=== PATIENT | male | born 1945 | race Two or more races ===

== ENCOUNTER 2020-08-20 21:01 | Emergency (ER) | payer MEDICARE, OTHER ==
[~2020-08-20] VITALS: Ht 172.7 cm; Wt 78.9 kg
--- NOTE | 2020-08-20 21:07 | NUR ---
PT AAOX4. BIBSON C/O COUGH X1 DAY. PER SON, TESTED POSITIVE YESTERDAY AND PT REQUESTING TO BE TESTED FOR COVID. PT PLACED ON MONITOR AND PULSE OX. RR EVEN AND UNLABORED. SAT 99% ON ROOM AIR.
--- NOTE | 2020-08-20 21:49 | NUR ---
DIGITAL EDITOR AT BEDSIDE FOR BLOOD WORK
[2020-08-20 21:56] LABS: BASOPHILS # (AUTO) 0.1 /CMM (0.0-0.2); BASOPHILS % (AUTO) 1.2 % (0.0-2.0); EOSINOPHILS % (AUTO) 3.4 % (0.0-6.0); HEMATOCRIT 32 % (39-51); HEMOGLOBIN 10.6 g/dL (13.5-17.5); LYMPHOCYTES # (AUTO) 1.1 /CMM (0.8-4.8); LYMPHOCYTES % (AUTO) 21.9 % (20.0-44.0); MEAN CORPUSCULAR HGB CONC 33 g/dl (31.0-36.0); MEAN CORPUSCULAR VOLUME 87 fL (80-96); MONOCYTES # (AUTO) 0.9 /CMM (0.1-1.30); MONOCYTES % (AUTO) 17.7 % (2.0-12.0); NEUTROPHILS # (AUTO) 2.9 /CMM (1.8-8.9); NEUTROPHILS % (AUTO) 55.8 % (43.0-81.0); PLATELET COUNT (AUTO) 208 /CMM (150-450); RED BLOOD CELL COUNT(AUTO) 3.66 MIL/uL (4.5-6.0); WHITE BLOOD COUNT (AUTO) 5.2 K/uL (4.3-11.0)
[2020-08-20 22:04] LABS: CALCIUM, SERUM 8.1 mg/dL (8.5-10.1); CARBON DIOXIDE 25 mmol/L (21-32); CHLORIDE 102 mmol/L (98-107); GLUCOSE 105 mg/dL (74-106); POTASSIUM 3.3 mmol/L (3.5-5.1); SODIUM SERUM 137 mmol/L (136-145); UREA NITROGEN, BLOOD 29 mg/dL (7-18)
[2020-08-20 22:17] LABS: ALANINE AMINOTRANSFERASE 18 U/L (12-78); ALBUMIN 3.5 g/dL (3.4-5.0); ALKALINE PHOSPHATASE 52 U/L (46-116); ASPARTATE AMINOTRANSFERASE 16 U/L (15-37); B-TYPE NATRIURETIC PEPTIDE 289 PG/ML (0-125); BILIRUBIN,TOTAL 0.3 mg/dL (0.2-1.0); TOTAL PROTEIN, SERUM 7.5 g/dL (6.4-8.2)
--- NOTE | 2020-08-20 22:31 | NUR ---
PT REMAINS RESTING IN BED, VSS.
--- NOTE | 2020-08-20 23:15 | NUR ---
LAB CALLED REGARDING POSITIVE COVID RESULT.
[2020-08-20 23:16] LABS: BAND % (MANUAL) 4 % (0.0-5.0); CREATINE KINASE, TOTAL 69 U/L (39-308); EOSINOPHILS % (MANUAL) 4 % (0-4); FERRITIN 24 ng/mL (8-388); LYMPHOCYTES % (MANUAL) 21 % (16-48); MONOCYTES % (MANUAL) 15 % (0-11.0); NEUTROPHILS % (MANUAL) 56 (42-76)
--- NOTE | 2020-08-20 23:18 | NUR ---
PT RESTING IN BED. VSS.
[2020-08-20 23:20] LABS: C-REACTIVE PROTEIN 2.2 mg/dL (0.0-0.9)
--- NOTE | 2020-08-20 23:36 | NUR ---
Patient discharged to home in stable condition. Written and verbal after care instructions given. Patient verbalizes understanding of instruction. vss. Pt ambulated with steady gait.
--- NOTE | 2020-08-20 23:36 | NUR ---
MD SPEAKING TO PT AND SON REGARDING PLAN OF CARE. PT WILL BE DISCHARGED.
[2020-08-21] VITALS: BP 142/79
[2020-08-26] MEDS ORDERED: DONE10TA44 PO (12:08)
[2020-08-26] MEDS ORDERED: TOLT4CAP14 PO (12:08)
== END 2020-08-21 00:01 | disposition home or self-care (01) ==
LOC: ER 21:06
DX: U07.1 COVID-19 (principal); I10 Essential (primary) hypertension; Z86.73 Personal history of transient ischemic attack (TIA), and cerebral infarction without residual deficits; I70.0 Atherosclerosis of aorta
CPT/HCPCS: 36415; 71045-TC; 80053-TC; 82550-TC; 82728-TC; 83605-TC; 83615-TC; 83880; 85025-TC; 85378-TC; 86140-TC; 87040-TC; C9803

== ENCOUNTER 2020-08-30 13:17 | Inpatient (IN) | payer MEDICARE, OTHER ==
[~2020-08-30] VITALS: Ht 172.7 cm; Wt 71.2 kg
[~2020-08-30 13:17] MED LIST: DONE10TA44 PO; TOLT4CAP14 PO
--- NOTE | 2020-08-30 13:20 | NUR ---
ON & OFF FEVER AND LOW O2SAT AT HOME, TESTED (+) COVID. PATIENT A/OX4, BREATHING EVEN AND UNLABORED, NO SOB NOTED, SPO2 93% ON ROOM AIR. NO DISTRESS NOTED. FAMILY AT BEDSIDE FOR TRANSLATION.
--- NOTE | 2020-08-30 14:25 | NUR ---
TO ER BED 8,NO APPARENT CHANGE IN CONDITION,NAD
[2020-08-30 15:06] LABS: BASOPHILS % (AUTO) 0.3 % (0.0-2.0); EOSINOPHILS % (AUTO) 0.1 % (0.0-6.0); HEMATOCRIT 30 % (39-51); HEMOGLOBIN 10.2 g/dL (13.5-17.5); LYMPHOCYTES # (AUTO) 0.8 /CMM (0.8-4.8); LYMPHOCYTES % (AUTO) 14.3 % (20.0-44.0); MEAN CORPUSCULAR HGB CONC 34 g/dl (31.0-36.0); MEAN CORPUSCULAR VOLUME 86 fL (80-96); MONOCYTES # (AUTO) 0.4 /CMM (0.1-1.30); MONOCYTES % (AUTO) 7.9 % (2.0-12.0); NEUTROPHILS # (AUTO) 4.4 /CMM (1.8-8.9); NEUTROPHILS % (AUTO) 77.4 % (43.0-81.0); PLATELET COUNT (AUTO) 225 /CMM (150-450); RED BLOOD CELL COUNT(AUTO) 3.53 MIL/uL (4.5-6.0); WHITE BLOOD COUNT (AUTO) 5.7 K/uL (4.3-11.0)
[2020-08-30 15:31] LABS: CALCIUM, SERUM 8.3 mg/dL (8.5-10.1); CARBON DIOXIDE 22 mmol/L (21-32); CHLORIDE 96 mmol/L (98-107); GLUCOSE 104 mg/dL (74-106); POTASSIUM 3.4 mmol/L (3.5-5.1); SODIUM SERUM 132 mmol/L (136-145); UREA NITROGEN, BLOOD 42 mg/dL (7-18)
[2020-08-30 15:41] LABS: CREATINE KINASE, TOTAL 85 U/L (39-308); FERRITIN 312 ng/mL (8-388)
[2020-08-30 15:55] LABS: ALANINE AMINOTRANSFERASE 25 U/L (12-78); ALBUMIN 3.1 g/dL (3.4-5.0); ALKALINE PHOSPHATASE 49 U/L (46-116); ASPARTATE AMINOTRANSFERASE 39 U/L (15-37); B-TYPE NATRIURETIC PEPTIDE 668 PG/ML (0-125); BILIRUBIN,TOTAL 0.3 mg/dL (0.2-1.0); TOTAL PROTEIN, SERUM 8.2 g/dL (6.4-8.2)
[2020-08-30] MEDS ORDERED: ACET325T53 PO (16:23)
[2020-08-30 16:31] LABS: BILIRUBIN,URINE Negative (NEGATIVE); BLOOD, URINE Trace-intact Ery/uL (NEGATIVE); COLOR,URINE YELLOW (YELLOW); LEUKOCYTE ESTERASE ,URINE Negative (NEGATIVE); NITRITE, URINE Negative (NEGATIVE); PROTEIN,URINE 100 mg/dl (NEGATIVE); UGLUCOSE Negative (NEGATIVE); UROBILINOGEN,URINE 0.2 EU/dL (0.2)
--- NOTE | 2020-08-30 17:14 | NUR ---
GOT BED 103
--- NOTE | 2020-08-30 17:29 | NUR ---
REPORT GIVEN TO JERARDO ESQUIVEL FOR VERONICA.
[2020-08-30 17:43] LABS: BACTERIA,URINE Few /HPF (None Seen); RBC,URINE 0-2 /HPF (0-2); SQUAMOUS EPITHELIAL CELL,UR Few /HPF (None Seen); WBC,URINE 0-2 /HPF (0-3)
--- NOTE | 2020-08-30 17:55 | NUR ---
PATIENT TRANSFERRED TO ROOM 103 VIA ACLS PROTOCOL. NO DISTRESS NOTED. NEEDS ATTENDED. PATIENT AMBULATORY, ENDORSED TO JERARDO ESQUIVEL.
[2020-08-30] MEDS ORDERED: ONDANSETRON HCL/PF 4 MG/2 ML VIAL IVP PRN (18:00)
[2020-08-30] MEDS ORDERED: CEFEPIME 1 GM in IV D5W 50 ML IV SCH (18:00)
[2020-08-30] MEDS ORDERED: ACETAMINOPHEN 325 MG TABLET PO PRN (18:00)
[2020-08-30] MEDS ORDERED: ALBUTEROL SULFATE 8 GM HFA.AER.AD IH PRN (18:00)
--- NOTE | 2020-08-30 18:00 | NUR ---
PT ARRIVED ONTO WITH NO SIGNS OF DISTRESS. MILD SOB. 4L/MIN NC ORDERED SAO94%. BP 110/78, RR 16, TEMP 98.3. SKIN INTACT. NO APPARENT DEFICITS. DENIES PAIN. MINIMAL ALBANIAN. UNDERSTAND FILIPINO AND CAMEROONIAN. SPOKE WITH SON TO OBTAIN PATIENT HISTORY WITH PATIENTS PERMISSION. ST 105 ON TELE. R AC FLUSHED. INTACT AND DRESSING INTACT. HOB ELEVATED 30 DEGREES. RAILS UP X2. NON SLIP SOCKS ON. PT REPORTS MILD SOB WITH EXERTION. NOT WITH REST. WILL ENDORSE TO PM RN. PT RESTING COMFORTABLY. ALL SAFETY PRECAUTIONS IN PLACE.
[2020-08-30] MEDS: CEFEPIME 2 GM in IV D5W 100 ML IV SCH (18:52)
[2020-08-30 20:00] VITALS: BP 146/76
--- NOTE | 2020-08-30 20:00 | NUR ---
RN NOTE RECEIVED PT IN BED RESTING, PT IS A/A/O X4,PT IS ON 4 L NC SATING 95%,PT ON TELE MONITOR SHOWING SR IN 100s, SAFETY MEASURE IN PLACE.
[2020-08-30] MEDS: HEPARIN SODIUM, PORCINE 5000 UNITS/1 ML VIAL SQ SCH (21:21)
[2020-08-30] MEDS: DOXYCYCLINE HYCLATE (100 MG) 100 MG TABLET PO SCH (21:21)
[2020-08-30 22:58] LABS: C-REACTIVE PROTEIN 21.6 mg/dL (0.0-0.9)
[2020-08-31] VITALS: BP 148/70
[2020-08-31 04:00] VITALS: BP 143/72
[2020-08-31 06:38] LABS: BASOPHILS % (AUTO) 0.2 % (0.0-2.0); HEMATOCRIT 31 % (39-51); HEMOGLOBIN 10.5 g/dL (13.5-17.5); LYMPHOCYTES # (AUTO) 0.8 /CMM (0.8-4.8); LYMPHOCYTES % (AUTO) 12.9 % (20.0-44.0); MEAN CORPUSCULAR HGB CONC 34 g/dl (31.0-36.0); MEAN CORPUSCULAR VOLUME 85 fL (80-96); MONOCYTES # (AUTO) 0.4 /CMM (0.1-1.30); MONOCYTES % (AUTO) 6.8 % (2.0-12.0); NEUTROPHILS % (AUTO) 80.1 % (43.0-81.0); PLATELET COUNT (AUTO) 246 /CMM (150-450); RED BLOOD CELL COUNT(AUTO) 3.67 MIL/uL (4.5-6.0); WHITE BLOOD COUNT (AUTO) 6.2 K/uL (4.3-11.0)
[2020-08-31 07:00] LABS: ALANINE AMINOTRANSFERASE 24 U/L (12-78); ALBUMIN 2.9 g/dL (3.4-5.0); ALKALINE PHOSPHATASE 42 U/L (46-116); ASPARTATE AMINOTRANSFERASE 39 U/L (15-37); BILIRUBIN,TOTAL 0.3 mg/dL (0.2-1.0); CALCIUM, SERUM 8.5 mg/dL (8.5-10.1); CARBON DIOXIDE 23 mmol/L (21-32); CHLORIDE 97 mmol/L (98-107); CREATININE 1.7 mg/dL (0.6-1.3); GLUCOSE 108 mg/dL (74-106); POTASSIUM 3.6 mmol/L (3.5-5.1); SODIUM SERUM 134 mmol/L (136-145); UREA NITROGEN, BLOOD 30 mg/dL (7-18)
[2020-08-31 07:08] LABS: FERRITIN 362 ng/mL (8-388)
--- NOTE | 2020-08-31 07:26 | NUR ---
RN NOTE PT REMAINED STABLE DURING MY SHIFT, NO ACUTE CHANGES, SHIFT REPORT GIVEN TO INCOMING SHIFT FOR VERONICA.
[2020-08-31 08:00] VITALS: BP 138/84
--- NOTE | 2020-08-31 08:00 | NUR ---
telephone instrument supervisor note patient in bed awake alert oriented on 4l nc with sob noted saturation 95% at this time on tele monitor [facility] [address] on rt ac intact and flushed well bed in lowest and locked position will cont to monitor per dr nicole will do transfuse convalescent plasma will f\u
[2020-08-31] MEDS: DOXYCYCLINE HYCLATE (100 MG) 100 MG TABLET PO SCH ×2 (08:49→20:36)
[2020-08-31] MEDS: ASPIRIN 81 MG TAB.CHEW PO SCH (08:49)
[2020-08-31] MEDS: DEXAMETHASONE SOD PHOSPHATE 4 MG/ML VIAL IV SCH (08:49)
[2020-08-31] MEDS: HEPARIN SODIUM, PORCINE 5000 UNITS/1 ML VIAL SQ SCH ×2 (08:51→20:39)
[2020-08-31] MEDS: CEFEPIME 2 GM in IV D5W 100 ML IV SCH ×2 (09:02→20:35)
--- NOTE | 2020-08-31 11:10 | NUR ---
SHANIQUA ESQUIVEL NOTE PER DR MENDOZA WILL TRANSFER CONVALESCENT PLASMA Addendum: 08/31/20 at 1133 by YUMIKO ARRIETA RN CONSENT FOR CONVALESCENTS PLASMA SENT TO LAB
[2020-08-31 12:00] VITALS: BP 143/73
--- NOTE | 2020-08-31 13:21 | NUR ---
PROOF PASSER NOTE UA COLLECTED ORDERED
[2020-08-31 16:00] VITALS: BP 140/79
[2020-08-31 16:20] LABS: CREATININE, URINE 155.7 MG/DL (30.0-125.0); URINE TOTAL PROTEIN 142.1 mg/dL (0-11.9)
[2020-08-31 16:24] LABS: BILIRUBIN,URINE NEGATIVE (NEGATIVE); BLOOD, URINE TRACE-INTA Ery/uL (NEGATIVE); COLOR,URINE YELLOW (YELLOW); LEUKOCYTE ESTERASE ,URINE NEGATIVE (NEGATIVE); NITRITE, URINE NEGATIVE (NEGATIVE); PH,URINE 5.5 (5.0-8.0); PROTEIN,URINE 30 mg/dl (NEGATIVE); UGLUCOSE NEGATIVE (NEGATIVE); UROBILINOGEN,URINE 0.2 EU/dL (0.2)
[2020-08-31 16:33] LABS: BACTERIA,URINE RARE /HPF (None Seen); SQUAMOUS EPITHELIAL CELL,UR 0-2 /HPF (None Seen); WBC,URINE 0-2 /HPF (0-3)
--- NOTE | 2020-08-31 17:00 | NUR ---
ms rn note all needs attended, will monitor
--- NOTE | 2020-08-31 18:20 | NUR ---
telegraph mechanic note convalescent plasma not ready yet ,will f\u with lab
--- NOTE | 2020-08-31 18:56 | NUR ---
SORTING GRAPPLE OPERATOR NOTE PER LAB POSITIVE FOR PCR
--- NOTE | 2020-08-31 19:10 | NUR ---
RN OPENING NOTES: RECEIVED PT A/OX 3-4 (GREENLANDIC SPEAKING) IN BED RESTING COMFORTABLY. PATIENT IN NO S/SX OF ACUTE DISTRESS AT THIS TIME. NO SOB NOTED. PATIENT'S BREATHING IS EVEN AND UNLABORED. PATIENT IS ON 4L; L OF OXYGEN VIA (); TOLERATING WELL. PATIENT ON TELE MONITORING READING SINUS RHYTHM , HR IS AT 80s AT THE TIME OF RECEIVED. NOTED IV SITE ON R AC #18;PATENT, INTACT AND FLUSHING WELL; NO S/S OF INFECTION OR INFILTRATION. PT ON CARDIAC DIET. SAFETY MEASURES HAVE BEEN PROVIDED AND IMPLEMENTED. PATIENT BED ALARM IS ON. HEAD OF BED ELEVATED. BED IS LOCKED, IN LOWEST POSITION AND SIDE RAILS UP. CALL LIGHT WITHIN REACH OF THE PATIENT. APPLICABLE ISOLATION PRECAUTIONS IN PLACE. WILL CONTINUE TO MONITOR AND REASSESS FOR ANY CHANGES AND WILL CARRY OUT ANY ONGOING AND ACTIVE MD ORDER.
[2020-08-31 19:15] LABS: EOSINOPHIL,URINE None Seen
[2020-08-31 20:00] VITALS: BP 151/85
--- NOTE | 2020-08-31 22:00 | NUR ---
RN NOTES NO CHANGE IN PATIENT CONDITION AT THIS TIME PATIENT VITALS STABLE, NO SIGNS OF ACUTE RESPIRATORY DISTRESS. EMERGENCY RESPONSE COORDINATOR MADE AWARE. WILL CONTINUE TO MONITOR AND REASSESS FOR ANY CHANGES THROUGHOUT THE SHIFT.
[2020-09-01] VITALS: BP 144/76
--- NOTE | 2020-09-01 02:00 | NUR ---
RN NOTES PATIENT REMAINS IN NO ACUTE RESPIRATORY DISTRESS AT THIS TIME, NO CHANGES TO CONDITION/STATUS. CORPORATE COUNSELOR WELL AWARE. WILL CONTINUE TO MONITOR AND REASSESS FOR ANY CHANGES THROUGHOUT THE SHIFT
[2020-09-01 04:00] VITALS: BP 140/84
--- NOTE | 2020-09-01 06:36 | NUR ---
RN CLOSING NOTE: PATIENT REMAINS IN ROOM. NO SIGNS OF RESPIRATORY DISTRESS. SAFETY MEASURES IMPLEMENTED, BED IN LOWEST POSITION, LOCKED, SIDE RAILS UP, CALL LIGHT WITHIN REACH. ALL NEEDS AND ORDERS ADDRESSED DURING THE SHIFT. ALL DUE MEDS GIVEN ORDERED & SCHEDULED ; PATIENT TOLERATED WELL.PATIENT KEPT CLEAN AND COMFORTABLE WITHIN THE SHIFT. ENDORSED TO INCOMING SHIFT RN FOR CONTINUITY OF CARE.
[2020-09-01 07:20] LABS: BASOPHILS % (AUTO) 0.1 % (0.0-2.0); HEMATOCRIT 32 % (39-51); LYMPHOCYTES % (AUTO) 11.1 % (20.0-44.0); MEAN CORPUSCULAR HGB CONC 34 g/dl (31.0-36.0); MEAN CORPUSCULAR VOLUME 84 fL (80-96); MONOCYTES # (AUTO) 0.9 /CMM (0.1-1.30); MONOCYTES % (AUTO) 10.3 % (2.0-12.0); NEUTROPHILS # (AUTO) 6.8 /CMM (1.8-8.9); NEUTROPHILS % (AUTO) 78.5 % (43.0-81.0); PLATELET COUNT (AUTO) 314 /CMM (150-450); RED BLOOD CELL COUNT(AUTO) 3.82 MIL/uL (4.5-6.0); WHITE BLOOD COUNT (AUTO) 8.7 K/uL (4.3-11.0)
[2020-09-01 08:00] VITALS: BP 154/74
[2020-09-01 08:02] LABS: MAGNESIUM 2.5 mg/dL (1.8-2.4); PHOSPHORUS 3.7 mg/dL (2.5-4.9)
--- NOTE | 2020-09-01 09:40 | NUR ---
RECEIVED PATIENT IN BED RESTING. NO S/S OF DISTRESS AT THIS TIME. PATIENT IS A/OX3, MONGOLIAN SPEAKING. TELE READING SHOWS NSR/ PATIENT HAS A R AC 18 G IV, INTACT AND PATENT. NO S/S OF INFECTION AT THIS TIME. ALL SAFETY MEASURES IN PLACE PER HOSPITAL POLICY. CALL LIGHT WITHIN REACH. WILL CONTINUE TO MONITOR AND PROVIDE TREATMENT.
[2020-09-01] MEDS: DOXYCYCLINE HYCLATE (100 MG) 100 MG TABLET PO SCH ×2 (11:21→20:29)
[2020-09-01] MEDS: ASPIRIN 81 MG TAB.CHEW PO SCH (11:21)
[2020-09-01] MEDS: DEXAMETHASONE SOD PHOSPHATE 4 MG/ML VIAL IV SCH (11:22)
[2020-09-01] MEDS: HEPARIN SODIUM, PORCINE 5000 UNITS/1 ML VIAL SQ SCH ×2 (11:24→20:29)
[2020-09-01] MEDS: CEFEPIME 2 GM in IV D5W 100 ML IV SCH ×2 (11:27→20:28)
[2020-09-01 12:00] VITALS: BP 174/82
--- NOTE | 2020-09-01 12:16 | NUR ---
INFORMED DR. HAMILTON REGARDING PATIENT'S BLOOD PRESSURE.
[2020-09-01 16:00] VITALS: BP 141/90
--- NOTE | 2020-09-01 18:40 | NUR ---
RN CLOSING NOTE PATIENT CURRENTLY IN BED RESTING. NO S/S OF DISTRESS AT THIS TIME. PATIENT IS A/OX3, WELSH SPEAKING. TELE READING SHOWS NSR. PATIENT HAS A R AC 18 G IV, INTACT AND PATENT. NO S/S OF INFECTION AT THIS TIME. ALL SAFETY MEASURES IN PLACE PER HOSPITAL POLICY. CALL LIGHT WITHIN REACH. WILL ENDORSE TO CONCAVER FOR VERONICA.
--- NOTE | 2020-09-01 19:50 | NUR ---
SHELLFISH MEAT SEPARATOR OPERATOR NOTES PATIENT IN BED. ALERT AND ORIENTED X 4. ON O2 VIA NC AT 4LPM, O2 SAT AT 93 %. NOT IN ANY ACUTE DISTRESS. DENIES ANY SOB. ON TELE MONITOR SR HR 97. DENIES ANY PAIN. PATIENT WITH RIGHT AC G 18, PATENT AND INTACT.FLUSHED WITH NS, NO SIGNS OF INFILTRATION. NO S/SX OF INFECTION NOTED. CALL LIGHT WITHIN REACH. ALL SAFETY MEASURES WERE IMPLEMENTED PER PROTOCOL, SIDE RAILS UP X 2. BED LOCKED IN LOWEST POSITION.
[2020-09-01 20:00] VITALS: BP 145/78
--- NOTE | 2020-09-01 22:00 | NUR ---
telecom coordinator notes Pts complain of sore throat spoke to dr naranjo with order mucinex 600mg via po q 12hrs ,order noted and carreid out will continue to monitor pts.
[2020-09-01] MEDS: GUAIFENESIN LA 600 MG TABLET.SA PO SCH (22:37)
[2020-09-02] VITALS (10 sets, daily range): BP systolic 138–171; BP diastolic 69–92
--- NOTE | 2020-09-02 04:30 | NUR ---
CLINICAL CASE MANAGER NOTES BLO0D PRESSURE OF 171/88 ,PTS COMFORTABLE IN BED NO COMPLAIN OF PAIN NOTED MD MADE AWARE DR FREEMAN AWAITING FOR REPLY .WILL F/U
--- NOTE | 2020-09-02 06:42 | NUR ---
RN CLOSING NOTE PATIENT REMAINS IN BED. NO SIGNS OF RESPIRATORY DISTRESS.REMAINS ON 4 LITERS OF 02VIA NC .SAFETY MEASURES IMPLEMENTED, BED IN LOWEST POSITION, LOCKED, SIDE RAILS UP, CALL LIGHT WITHIN REACH. ALL NEEDS ATTENDED TOO. PATIENT KEPT CLEAN AND COMFORTABLE WITHIN THE SHIFT. ENDORSED TO INCOMING SHIFT RN FOR CONTINUITY OF CARE AND FOLLOW UP ORDER FOR BLOOD PRESSURE MEDICATION .
--- NOTE | 2020-09-02 07:30 | NUR ---
RN OPENING NOTE PATIENT REMAINS IN BED. NO SIGNS OF RESPIRATORY DISTRESS AT THIS TIME. REMAINS ON 4 LITERS OF 02 VIA NC, TOLERATING WELL, OXYGEN SATURATION 98%. PATIENT IS ALERT AND ORIENTED X4, SINHALA SPEAKING. ABLE TO MAKE NEEDS KNOWN. R AC 18G IV INTACT AND PATENT, NO S/S OF INFECTION AT THIS TIME. SAFETY MEASURES IMPLEMENTED, BED IN LOWEST POSITION, LOCKED, SIDE RAILS UP, CALL LIGHT WITHIN REACH. WILL CONTINUE TO MONITOR AND PROVIDE TREATMENT.
[2020-09-02 07:55] LABS: BASOPHILS # (AUTO) 0.1 /CMM (0.0-0.2); BASOPHILS % (AUTO) 0.5 % (0.0-2.0); HEMATOCRIT 31 % (39-51); HEMOGLOBIN 10.5 g/dL (13.5-17.5); LYMPHOCYTES # (AUTO) 0.9 /CMM (0.8-4.8); LYMPHOCYTES % (AUTO) 7.7 % (20.0-44.0); MEAN CORPUSCULAR HGB CONC 34 g/dl (31.0-36.0); MEAN CORPUSCULAR VOLUME 84 fL (80-96); MONOCYTES # (AUTO) 1.3 /CMM (0.1-1.30); MONOCYTES % (AUTO) 11.1 % (2.0-12.0); NEUTROPHILS # (AUTO) 9.5 /CMM (1.8-8.9); NEUTROPHILS % (AUTO) 80.7 % (43.0-81.0); PLATELET COUNT (AUTO) 348 /CMM (150-450); WHITE BLOOD COUNT (AUTO) 11.8 K/uL (4.3-11.0)
[2020-09-02] MEDS: DEXAMETHASONE SOD PHOSPHATE 4 MG/ML VIAL IV SCH (08:17)
[2020-09-02] MEDS: DOXYCYCLINE HYCLATE (100 MG) 100 MG TABLET PO SCH ×2 (08:17→21:07)
[2020-09-02] MEDS: GUAIFENESIN LA 600 MG TABLET.SA PO SCH ×2 (08:17→21:07)
[2020-09-02] MEDS: ASPIRIN 81 MG TAB.CHEW PO SCH (08:17)
[2020-09-02] MEDS: HEPARIN SODIUM, PORCINE 5000 UNITS/1 ML VIAL SQ SCH ×2 (08:17→21:08)
[2020-09-02] MEDS: CEFEPIME 2 GM in IV D5W 100 ML IV SCH ×2 (08:18→21:06)
[2020-09-02 08:35] LABS: ALANINE AMINOTRANSFERASE 46 U/L (12-78); ALBUMIN 2.8 g/dL (3.4-5.0); ALKALINE PHOSPHATASE 46 U/L (46-116); ASPARTATE AMINOTRANSFERASE 48 U/L (15-37); BILIRUBIN,TOTAL 0.5 mg/dL (0.2-1.0); CALCIUM, SERUM 9.5 mg/dL (8.5-10.1); CARBON DIOXIDE 21 mmol/L (21-32); CHLORIDE 98 mmol/L (98-107); CREATININE 1.6 mg/dL (0.6-1.3); GLUCOSE 113 mg/dL (74-106); MAGNESIUM 2.3 mg/dL (1.8-2.4); PHOSPHORUS 3.9 mg/dL (2.5-4.9); POTASSIUM 3.6 mmol/L (3.5-5.1); SODIUM SERUM 135 mmol/L (136-145); TOTAL PROTEIN, SERUM 8.4 g/dL (6.4-8.2); UREA NITROGEN, BLOOD 49 mg/dL (7-18)
[2020-09-02 09:09] LABS: PTH, INTACT 32 pg/mL (15-65)
[2020-09-02 10:43] LABS: FERRITIN 360 ng/mL (8-388)
--- NOTE | 2020-09-02 13:05 | NUR ---
PLASMA TRANSFUSION PLASMA RECEIVED FROM LAB BBK, INFUSION STARTED. MONITORED PATIENT. NO S/S OF DISTRESS NOTED UPON STARTING PLASMA. VS TAKEN. WILL CONTINUE TO MONITOR
--- NOTE | 2020-09-02 13:20 | NUR ---
PLASMA TRANSFUSION - 15 MIN VITAL SIGNS TAKEN, PATIENT DENIES ANY PAIN OR DISCOMFORT AT THIS TIME. NO S/S OF DISTRESS FROM TRANSFUSION AT THIS TIME. WILL CONTINUE TO MONITOR.
--- NOTE | 2020-09-02 14:50 | NUR ---
PLASMA TRANSFUSION -90 MIN VITAL SIGNS TAKEN, PATIENT DENIES ANY PAIN OR DISCOMFORT. NO S/S OF DISTRESS AT THIS TIME. WILL CONTINUE TO MONITOR.
--- NOTE | 2020-09-02 15:25 | NUR ---
PLASMA TRANSFUSION - COMPLETED PLASMA INFUSED, VS TAKEN. PATIENT DENIES ANY PAIN OR DISCOMFORT AT THIS TIME. WILL CONTINUE TO [place] PATIENT.
[2020-09-02] MEDS: CHOLECALCIFEROL 1,000 UNIT TABLET (VIT D3) PO SCH (15:41)
[2020-09-02] MEDS: CLOPIDOGREL BISULFATE 75 MG TABLET PO SCH (15:41)
[2020-09-02] MEDS: CARVEDILOL 6.25 MG TABLET PO SCH (17:03)
--- NOTE | 2020-09-02 18:41 | NUR ---
RN CLOSING NOTE PATIENT REMAINS IN BED. NO SIGNS OF RESPIRATORY DISTRESS AT THIS TIME. REMAINS ON 4 LITERS OF 02 VIA NC, TOLERATING WELL, OXYGEN SATURATION 97%. PATIENT IS ALERT AND ORIENTED X4, CHINESE SPEAKING. ABLE TO MAKE NEEDS KNOWN. R AC 18G IV INTACT AND PATENT, NO S/S OF INFECTION AT THIS TIME. PATIENT RECEIVED 1 UNIT OF PLASMA, TOLERATED WELL WITH NO S/S OF REACTION AT THIS TIME. SAFETY MEASURES IMPLEMENTED, BED IN LOWEST POSITION, LOCKED, SIDE RAILS UP, CALL LIGHT WITHIN REACH. WILL CONTINUE TO MONITOR AND PROVIDE TREATMENT. Addendum: 09/02/20 at 1843 by ANDREW MEYERS RN *WILL ENDORSE TO SOFTWARE BUSINESS ANALYST RN FOR VERONICA.
--- NOTE | 2020-09-02 19:40 | NUR ---
RN OPENING NOTE PATIENT IN BED, ALERT AND ORIENTED X 4. ON O2 VIA NC AT 4 LPM, SATING AT 4 LPM. NOT IN ANY ACUTE DISTRESS, DENIES ANY SOB. ON TELE MONITOR SHOWING SR HR 92. IV ON R AC 18 G PATENT AND INTACT, FLUSHED WITH NS. NO SIGNS OF INFILTRATION NO INFECTION NOTED. ALL SAFETY MEASURES IMPLEMENTED PER PROTOCOL, BED IN LOWEST POSITION, LOCKED, SIDE RAILS UP, CALL LIGHT WITHIN REACH.
[2020-09-02] MEDS: ATORVASTATIN 10 MG TABLET PO SCH (21:08)
[2020-09-03] VITALS: BP 149/84
[2020-09-03 04:00] VITALS: BP 149/72
--- NOTE | 2020-09-03 06:24 | NUR ---
RN CLOSING NOTE PATIENT REMAINS IN BED. NO SIGNS OF RESPIRATORY DISTRESS.REMAINS ON 4 LITERS OF 02VIA NC ON SR 87 SATING 94%.SAFETY MEASURES IMPLEMENTED, BED IN LOWEST POSITION, LOCKED, SIDE RAILS UP, CALL LIGHT WITHIN REACH. ALL NEEDS ATTENDED TOO. PATIENT KEPT CLEAN AND COMFORTABLE WITHIN THE SHIFT. ENDORSED TO INCOMING SHIFT RN FOR CONTINUITY OF CARE .V/S STABLE AFEBRILE.
[2020-09-03 06:46] LABS: CALCIUM, SERUM 8.9 mg/dL (8.5-10.1); CARBON DIOXIDE 22 mmol/L (21-32); CHLORIDE 99 mmol/L (98-107); CREATININE 1.7 mg/dL (0.6-1.3); GLUCOSE 96 mg/dL (74-106); POTASSIUM 3.9 mmol/L (3.5-5.1); SODIUM SERUM 136 mmol/L (136-145); UREA NITROGEN, BLOOD 59 mg/dL (7-18)
--- NOTE | 2020-09-03 07:30 | NUR ---
TAX EXPERT AM NOTE PATIENT IN BED, ALERT AND ORIENTED X 4. SPEAKS BELGIAN ONLY. ON O2 VIA NC AT 4 LPM, WITH O2 SAT 92%. NOT IN ANY ACUTE DISTRESS, DENIES ANY SOB. ON TELE MONITOR SHOWING SR HR 83. DENIES PAIN. IV ON R AC 18 G FLUSHES WELL, SITE CLEAR. AMBULATORY, CARDIAC DIET, NO SKIN ISSUES. ALL SAFETY MEASURES IMPLEMENTED PER PROTOCOL, BED IN LOWEST POSITION, LOCKED, SIDE RAILS UP, CALL LIGHT WITHIN REACH. WILL CONTINUE TO MONITOR.
[2020-09-03 08:00] VITALS: BP 164/77
[2020-09-03] MEDS: ASPIRIN 81 MG TAB.CHEW PO SCH (08:57)
[2020-09-03] MEDS: DEXAMETHASONE SOD PHOSPHATE 4 MG/ML VIAL IV SCH (08:58)
[2020-09-03] MEDS: CLOPIDOGREL BISULFATE 75 MG TABLET PO SCH (08:58)
[2020-09-03] MEDS: DOXYCYCLINE HYCLATE (100 MG) 100 MG TABLET PO SCH ×2 (08:58→21:31)
[2020-09-03] MEDS: CHOLECALCIFEROL 1,000 UNIT TABLET (VIT D3) PO SCH (08:59)
[2020-09-03] MEDS: HEPARIN SODIUM, PORCINE 5000 UNITS/1 ML VIAL SQ SCH ×2 (08:59→21:32)
[2020-09-03] MEDS: GUAIFENESIN LA 600 MG TABLET.SA PO SCH ×2 (09:02→21:31)
[2020-09-03] MEDS: CEFEPIME 2 GM in IV D5W 100 ML IV SCH ×2 (09:02→21:31)
[2020-09-03] MEDS: CARVEDILOL 6.25 MG TABLET PO SCH ×2 (09:02→17:17)
--- NOTE | 2020-09-03 09:30 | NUR ---
RN NOTES DUE MEDS GIVEN
[2020-09-03 12:00] VITALS: BP 148/78
[2020-09-03 16:00] VITALS: BP 146/68
--- NOTE | 2020-09-03 18:31 | NUR ---
SPEECH/LANGUAGE THERAPIST CLOSING NOTES PATIENT IN BED, ALERT AND ORIENTED X 4. RESTING. SPEAKS NEPALI ONLY. ON O2 VIA NC AT 4 LPM, WITH O2 SAT 96%. NOT IN ANY ACUTE DISTRESS, DENIES ANY SOB. ON TELE MONITOR SHOWING SR HR 88. DENIES PAIN. IV ON R AC 18 G FLUSHES WELL, SITE CLEAR. AMBULATORY, CARDIAC DIET, NO SKIN ISSUES. ALL SAFETY MEASURES IMPLEMENTED PER PROTOCOL, BED IN LOWEST POSITION, LOCKED, SIDE RAILS UP, CALL LIGHT WITHIN REACH. PM CARE DONE EARLIER. ALL NEEDS MET AT THIS TIME.WILL ENDORSE TO NEXT SHIFT FOR VERONICA.
--- NOTE | 2020-09-03 19:37 | NUR ---
CLEANER WALL OPENING NOTES PATIENT RECEIVED RESTING IN BED COMFORTABLY; A/OX4, UKRAINIAN SPEAKING; BREATHING EVEN AND UNLABORED; TOLERATING 4LPM VIA NC WELL; NO SOB NOTED; NO DISTRESS NOTED; TELE MONITOR READS SINUS RHYTHM 76BPM; PATIENT ABLE TO MAKE NEEDS KNOWN, PER AM SHIFT, WILL CALL FAMILY MEMBER TO TRANSLATE IF NEEDED; R AC # 18 INTACT AND PATENT, TOLERATING IVF WELL; ISOLATION PRECAUTIONS MAINTAINED; SAFETY PRECAUTIONS IMPLEMENTED; BED LOCKED IN LOW POSITION; SIDE RAILSX2; CALL LIGHT WITHIN REACH; WILL CONT TO MONITOR
[2020-09-03 20:00] VITALS: BP 156/77
[2020-09-03] MEDS: ATORVASTATIN 10 MG TABLET PO SCH (21:31)
[2020-09-04] VITALS: BP 104/75
[2020-09-04 04:00] VITALS: BP 170/77
--- NOTE | 2020-09-04 04:00 | NUR ---
FISHER SPEAR NOTES PATIENT BP ELEVATED 170/80S; PATIENT DENIES DISTRESS OR PAIN; PATIENT HAS HISTORY OF HTN; PATIENT REPORTED HE WILL GO BACK TO SLEEP AND REST; WILL CONT TO MONITOR
[2020-09-04 06:32] LABS: BASOPHILS % (AUTO) 0.2 % (0.0-2.0); HEMATOCRIT 31 % (39-51); HEMOGLOBIN 10.3 g/dL (13.5-17.5); LYMPHOCYTES # (AUTO) 0.8 /CMM (0.8-4.8); LYMPHOCYTES % (AUTO) 6.5 % (20.0-44.0); MEAN CORPUSCULAR HGB CONC 33 g/dl (31.0-36.0); MEAN CORPUSCULAR VOLUME 85 fL (80-96); MONOCYTES # (AUTO) 1.2 /CMM (0.1-1.30); MONOCYTES % (AUTO) 9.9 % (2.0-12.0); NEUTROPHILS # (AUTO) 10.4 /CMM (1.8-8.9); NEUTROPHILS % (AUTO) 83.4 % (43.0-81.0); PLATELET COUNT (AUTO) 457 /CMM (150-450); RED BLOOD CELL COUNT(AUTO) 3.69 MIL/uL (4.5-6.0); WHITE BLOOD COUNT (AUTO) 12.5 K/uL (4.3-11.0)
--- NOTE | 2020-09-04 06:35 | NUR ---
ENVIRONMENTAL PLANNING ENGINEER CLOSING NOTES PATIENT RESTING IN BED COMFORTABLY; A/OX4, MALDIVIAN SPEAKING; TOLERATING 4LPM VIA NC WELL; NO SOB NOTED; NO DISTRESS NOTED; BREATHING EVEN AND UNLABORED; PATIENT DENIES PAIN; PATIENT ABLE TO MAKE NEEDS KNOWN; TELE MONITOR READS SINUS RHYTHM; ISOLATION PRECAUTIONS MAINTAINED; SAFETY PRECAUTIONS IMPLEMENTED; ALL NEEDS RENDERED; WILL ENDORSE VERONICA TO ONCOMING SHIFT
[2020-09-04 07:25] LABS: CALCIUM, SERUM 9.5 mg/dL (8.5-10.1); CARBON DIOXIDE 22 mmol/L (21-32); CHLORIDE 101 mmol/L (98-107); CREATININE 1.7 mg/dL (0.6-1.3); GLUCOSE 96 mg/dL (74-106); SODIUM SERUM 137 mmol/L (136-145); UREA NITROGEN, BLOOD 70 mg/dL (7-18)
--- NOTE | 2020-09-04 07:37 | NUR ---
CARD GAME OPERATOR OPENING NOTES RECEIVED PATIENT IN BED, AWAKE, A/O X4. PATIENT ON OXYGEN THERAPY AT 4 LMP VIA NASAL CANNULA; BREATHING EVEN AND UNLABORED AT THIS TIME. NO COMPLAINS OF PAIN. TELE MONITOR WITH A CURRENT READING OF SINUS RHYTHM 94 BPM. RAC IV ACCESS PRESENT AND INTACT. SAFETY PRECAUTIONS IN PLACE; BED IN LOW POSITION AND LOCKED, RAILS UP X2, CALL LIGHT WITHIN REACH. WILL CONTINUE TO MONITOR PATIENT.
[2020-09-04 08:00] VITALS: BP 165/85
[2020-09-04] MEDS: ASPIRIN 81 MG TAB.CHEW PO SCH (08:09)
[2020-09-04] MEDS: CHOLECALCIFEROL 1,000 UNIT TABLET (VIT D3) PO SCH (08:09)
[2020-09-04] MEDS: CLOPIDOGREL BISULFATE 75 MG TABLET PO SCH (08:09)
[2020-09-04] MEDS: GUAIFENESIN LA 600 MG TABLET.SA PO SCH ×2 (08:09→21:07)
[2020-09-04] MEDS: CARVEDILOL 6.25 MG TABLET PO SCH ×2 (08:10→17:30)
[2020-09-04] MEDS: DEXAMETHASONE SOD PHOSPHATE 4 MG/ML VIAL IV SCH (08:10)
[2020-09-04] MEDS: HEPARIN SODIUM, PORCINE 5000 UNITS/1 ML VIAL SQ SCH ×2 (08:12→21:08)
[2020-09-04] MEDS: CEFEPIME 2 GM in IV D5W 100 ML IV SCH (08:28)
[2020-09-04] MEDS: AMLODIPINE BESYLATE 10 MG TABLET PO SCH (12:20)
[2020-09-04 13:43] VITALS: BP 153/69
[2020-09-04 17:25] VITALS: BP 153/78
--- NOTE | 2020-09-04 18:45 | NUR ---
PRODUCTION MACHINE OPERATOR CLOSING NOTES PATIENT IN BED, AWAKE, A/O X4. PATIENT ON OXYGEN THERAPY AT 4 LMP VIA NASAL CANNULA; BREATHING EVEN AND UNLABORED DURING THE DAY. NO COMPLAINS OF PAIN DURING THE SHIFT. TELE MONITOR WITH A READING OF SINUS RHYTHM 84 BPM. RAC IV ACCESS PRESENT AND INTACT. ALL NEEDS ATTENDED TO THROUGHOUT THE DAY. SAFETY PRECAUTIONS IN PLACE; BED IN LOW POSITION AND LOCKED, RAILS UP X2, CALL LIGHT WITHIN REACH. WILL ENDORSE TO REGIONAL TELECOMMUNICATIONS SPECIALIST NURSE.
[2020-09-04 20:00] VITALS: BP 139/75
--- NOTE | 2020-09-04 20:00 | NUR ---
telephone answering service operator opening note received pt in bed. a/o x4. Breathing even and unlabored on 4lpm via nc. 02 saturation at 95%. Pt denies sob. Denies any pain or discomfort. RAC #18 patent and intact. All needs rendered. Bed in lowest position. Srx2 up. Call light within reach. Will continue to monitor.
[2020-09-04] MEDS: ATORVASTATIN 10 MG TABLET PO SCH (21:07)
[2020-09-05] VITALS: BP 140/80
[2020-09-05 04:00] VITALS: BP 167/88
--- NOTE | 2020-09-05 06:25 | NUR ---
telegraphic service dispatcher closing note pt in bed, asleep but easily arousable. Breathing even and unlabored in 4lpm of 02 via nc. NSR in tele monitor. Denies any pain or discomfor.t Iv site patent and intact. All needs rendered. Bed in lowest position. Call light within reach. Will endorse to am nurse for continuity of care.
[2020-09-05 08:00] VITALS: BP 134/75
--- NOTE | 2020-09-05 08:01 | NUR ---
DIALYSIS TECHNICIAN OPENING NOTES RECEIVED PATIENT IN BED, AWAKE, A/O X4. PATIENT ON OXYGEN THERAPY AT 4 LMP VIA NASAL CANNULA; BREATHING EVEN AND UNLABORED AT THIS TIME. NO COMPLAINS OF PAIN. TELE MONITOR WITH A CURRENT READING OF SINUS RHYTHM. RAC IV ACCESS PRESENT AND INTACT. SAFETY PRECAUTIONS IN PLACE; BED IN LOW POSITION AND LOCKED, RAILS UP X2, CALL LIGHT WITHIN REACH. WILL CONTINUE TO MONITOR PATIENT.
[2020-09-05] MEDS: ASPIRIN 81 MG TAB.CHEW PO SCH (08:35)
[2020-09-05] MEDS: AMLODIPINE BESYLATE 10 MG TABLET PO SCH (08:35)
[2020-09-05] MEDS: GUAIFENESIN LA 600 MG TABLET.SA PO SCH ×2 (08:36→21:17)
[2020-09-05] MEDS: DEXAMETHASONE SOD PHOSPHATE 4 MG/ML VIAL IV SCH (08:36)
[2020-09-05] MEDS: CHOLECALCIFEROL 1,000 UNIT TABLET (VIT D3) PO SCH (08:36)
[2020-09-05] MEDS: CLOPIDOGREL BISULFATE 75 MG TABLET PO SCH (08:36)
[2020-09-05] MEDS: CARVEDILOL 6.25 MG TABLET PO SCH ×2 (08:36→16:05)
[2020-09-05] MEDS: HEPARIN SODIUM, PORCINE 5000 UNITS/1 ML VIAL SQ SCH ×2 (08:42→21:19)
[2020-09-05 12:00] VITALS: BP 116/53
[2020-09-05 16:14] VITALS: BP 167/78
[2020-09-05 17:02] LABS: *SPE A/G RATIO 0.6 (0.7-1.7); *SPE ALBUMIN 2.9 g/dL (2.9-4.4); *SPE ALPHA-1-GLOBULIN 0.5 g/dL (0.0-0.4); *SPE ALPHA-2-GLOBULIN 1.9 g/dL (0.4-1.0); *SPE GLOBULIN, TOTAL 4.7 g/dL (2.2-3.9); *SPE M-SPIKE Not Observed g/dL (Not Observed); *SPEGAMMA GLOBULIN 1.2 g/dL (0.4-1.8)
--- NOTE | 2020-09-05 18:35 | NUR ---
VENEER LATHE OPERATOR CLOSING NOTES PATIENT REMAINS IN BED, AWAKE, A/O X4. PATIENT ON OXYGEN THERAPY AT 4 LMP VIA NASAL CANNULA; BREATHING EVEN AND UNLABORED DURING THE DAY, NO SOB NOTED. NO COMPLAINS OF PAIN DURING SHIFT. TELE MONITOR WITH A CURRENT READING OF SINUS RHYTHM. RAC IV ACCESS PRESENT AND INTACT. ALL NEEDS ATTENDED THROUGHOUT THE DAY. SAFETY PRECAUTIONS IN PLACE; BED IN LOW POSITION AND LOCKED, RAILS UP X2, CALL LIGHT WITHIN REACH. WILL ENDORSE TO ICT SUPPORT TECHNICIANS NURSE.
--- NOTE | 2020-09-05 19:30 | NUR ---
RN NOTES PATIENT AWAKE, A/O X4. PATIENT ON O2 AT 4 LPM VIA NASAL CANNULA. BREATHING EVEN AND UNLABORED. NO SOB NOTED. DENIES ANY PAIN AT THIS TIME. TELE MONITOR ON, SR 80'S. RAC IV ACCESS PRESENT AND INTACT. BED LOCKED AND IN LOWEST POSITION. SIDE RAILS UP X2. CALL LIGHT WITHIN REACH. WILL CONTINUE TO MONITOR.
[2020-09-05 20:00] VITALS: BP 140/76
[2020-09-05] MEDS: ATORVASTATIN 10 MG TABLET PO SCH (21:17)
[2020-09-06] VITALS: BP 146/85
[2020-09-06 04:00] VITALS: BP 152/80
[2020-09-06 06:25] LABS: BASOPHILS % (AUTO) 0.1 % (0.0-2.0); EOSINOPHILS % (AUTO) 0.3 % (0.0-6.0); HEMATOCRIT 31 % (39-51); HEMOGLOBIN 10.2 g/dL (13.5-17.5); LYMPHOCYTES # (AUTO) 0.8 /CMM (0.8-4.8); LYMPHOCYTES % (AUTO) 4.7 % (20.0-44.0); MEAN CORPUSCULAR HGB CONC 33 g/dl (31.0-36.0); MEAN CORPUSCULAR VOLUME 84 fL (80-96); MONOCYTES # (AUTO) 1.3 /CMM (0.1-1.30); NEUTROPHILS # (AUTO) 14.2 /CMM (1.8-8.9); NEUTROPHILS % (AUTO) 86.9 % (43.0-81.0); PLATELET COUNT (AUTO) 561 /CMM (150-450); RED BLOOD CELL COUNT(AUTO) 3.67 MIL/uL (4.5-6.0); WHITE BLOOD COUNT (AUTO) 16.4 K/uL (4.3-11.0)
[2020-09-06 06:50] LABS: ALANINE AMINOTRANSFERASE 61 U/L (12-78); ALBUMIN 2.7 g/dL (3.4-5.0); ALKALINE PHOSPHATASE 43 U/L (46-116); ASPARTATE AMINOTRANSFERASE 30 U/L (15-37); BILIRUBIN,TOTAL 0.4 mg/dL (0.2-1.0); CALCIUM, SERUM 9.4 mg/dL (8.5-10.1); CARBON DIOXIDE 19 mmol/L (21-32); CHLORIDE 101 mmol/L (98-107); CREATININE 1.7 mg/dL (0.6-1.3); GLUCOSE 90 mg/dL (74-106); POTASSIUM 4.8 mmol/L (3.5-5.1); SODIUM SERUM 136 mmol/L (136-145); UREA NITROGEN, BLOOD 72 mg/dL (7-18)
[2020-09-06 06:55] LABS: C-REACTIVE PROTEIN 10.2 mg/dL (0.0-0.9)
--- NOTE | 2020-09-06 07:22 | NUR ---
RN NOTES PATIENT AWAKE, A/O X4. PATIENT ON O2 AT 4 LPM VIA NASAL CANNULA O2 SAT 97%. BREATHING EVEN AND UNLABORED. NO SOB NOTED. DENIES ANY PAIN AT THIS TIME. TELE MONITOR ON, SR 80'S. RAC IV ACCESS PRESENT AND INTACT. NO SIGNIFICANT CHANGES DURING SHIFT. BED LOCKED AND IN LOWEST POSITION. SIDE RAILS UP X2. CALL LIGHT WITHIN REACH. WILL ENDORSE TO ONCOMING SHIFT.
--- NOTE | 2020-09-06 07:30 | NUR ---
PT RECEIVED RESTING COMFORTABLY IN BED. NO S/S OR C/O PAIN OR DISTRESS NOTED. SIDE RAILS UP X2, CALL LIGHT LEFT WITHIN REACH. WILL CONTINUE PLAN OF CARE
[2020-09-06 08:00] VITALS: BP 131/69
[2020-09-06] MEDS: DEXAMETHASONE SOD PHOSPHATE 4 MG/ML VIAL IV SCH (10:17)
[2020-09-06] MEDS: ASPIRIN 81 MG TAB.CHEW PO SCH (10:17)
[2020-09-06] MEDS: CARVEDILOL 6.25 MG TABLET PO SCH (10:18)
[2020-09-06 10:19] VITALS: BP 176/54
[2020-09-06] MEDS: AMLODIPINE BESYLATE 10 MG TABLET PO SCH (10:19)
[2020-09-06] MEDS: GUAIFENESIN LA 600 MG TABLET.SA PO SCH (10:19)
[2020-09-06] MEDS: CHOLECALCIFEROL 1,000 UNIT TABLET (VIT D3) PO SCH (10:19)
[2020-09-06] MEDS: CLOPIDOGREL BISULFATE 75 MG TABLET PO SCH (10:20)
[2020-09-06] MEDS: HEPARIN SODIUM, PORCINE 5000 UNITS/1 ML VIAL SQ SCH (10:20)
--- NOTE | 2020-09-06 18:00 | NUR ---
DISCHARGE INSTRUCTIONS GIVEN ORDERED. ENCOURAGED TO FOLLOW UP WITH PMD INSTRUCTED. ALL QUESTIONS AND CONCERNS ADDRESSED. PATIENT VERBALIZED UNDERSTANDING. MEDICATION RECONCILIATION FORM COMPLETED AND COPY GIVEN TO PATIENT. IV REMOVED WITH CATHETER INTACT, PRESSURE DRESSING APPLIED. PATIENT TAKEN TO VEHICLE VIA WHEEL CHAIR WITH ALL PERSONAL BELONGINGS, ACCOMPANIED BY STAFF. NO DISTRESS NOTED AT TIME OF DEPARTURE.
== END 2020-09-06 15:30 | disposition home health service (06) | DRG 177 ==
LOC: ER 13:25 → TELE1 17:27 → MEDSG1 09-06 15:20
PROVIDERS: ADMIT Nurse Practitioner Acute Care; ATTEND Nurse Practitioner Acute Care
PROC: XW13325 Transfusion of Convalescent Plasma (Nonautologous) into Peripheral Vein, Percutaneous Approach, New Technology Group 5 (ICD-10-PCS; principal; 2020-09-02)
DX: U07.1 COVID-19 (principal); J96.01 Acute respiratory failure with hypoxia; J12.89 Other viral pneumonia; N17.0 Acute kidney failure with tubular necrosis; E87.1 Hypo-osmolality and hyponatremia; N18.4 Chronic kidney disease, stage 4 (severe); I69.354 Hemiplegia and hemiparesis following cerebral infarction affecting left non-dominant side; E87.6 Hypokalemia; E88.09 Other disorders of plasma-protein metabolism, not elsewhere classified; D63.1 Anemia in chronic kidney disease; I12.9 Hypertensive chronic kidney disease with stage 1 through stage 4 chronic kidney disease, or unspecified chronic kidney disease; Z87.891 Personal history of nicotine dependence; N28.1 Cyst of kidney, acquired; D50.0 Iron deficiency anemia secondary to blood loss (chronic); T38.0X5A Adverse effect of glucocorticoids and synthetic analogues, initial encounter; Y92.89 Other specified places as the place of occurrence of the external cause; D72.829 Elevated white blood cell count, unspecified
CPT/HCPCS: 36415; 71045-TC; 76770-TC; 80048-TC; 80053-TC; 81001; 82550-TC; 82570-TC; 82728-TC; 83605-TC; 83615-TC; 83735-TC; 83880; 83970; 84100-TC; 84155; 84155-TC; 84165; 84300-TC; 84484-TC; 85025-TC; 85378-TC; 86140-TC; 86850-TC; 87081-TC; G0378; J0692; J1100; J1644; J7050; J7060; P9017-BL; U0003

== ENCOUNTER 2024-07-25 17:40 | Emergency (ER) | payer MEDICARE, OTHER ==
[~2024-07-25] VITALS: Ht 172.7 cm; Wt 78.5 kg
[~2024-07-25 17:40] MED LIST changes: +ACET325T53 PO; -DONE10TA44 PO; -TOLT4CAP14 PO
[2024-07-25] MEDS ORDERED: KETOROLAC TROMETHAMINE 15 MG/ML VIAL ONE (18:37)
[2024-07-25] MEDS ORDERED: CEFTRIAXONE 1GM BAG (ER ONLY) 50 ML IV ONE (18:37)
[2024-07-25] MEDS ORDERED: KETOROLAC TROMETHAMINE INJ 30 MG/ML VIAL ONE (18:41)
[2024-07-25 18:47] LABS: BASOPHILS # (AUTO) 0.1 K/uL (0.0-0.2); BASOPHILS % (AUTO) 0.7 % (0.0-2.0); EOSINOPHILS # (AUTO) 0.3 K/uL (0.0-0.7); EOSINOPHILS % (AUTO) 3.4 % (0.0-6.0); HEMATOCRIT 33 % (39-51); HEMOGLOBIN 11.1 g/dL (13.5-17.5); LYMPHOCYTES # (AUTO) 1.1 K/uL (0.8-4.8); LYMPHOCYTES % (AUTO) 12.7 % (20.0-44.0); MEAN CORPUSCULAR HEMOGLOBIN 29 PG (26.0-33.0); MEAN CORPUSCULAR HGB CONC 34 g/dl (31.0-36.0); MEAN CORPUSCULAR VOLUME 85 fL (80-96); MONOCYTES # (AUTO) 1.1 K/uL (0.1-1.30); MONOCYTES % (AUTO) 12.4 % (2.0-12.0); NEUTROPHILS % (AUTO) 70.8 % (43.0-81.0); PLATELET COUNT (AUTO) 237 K/uL (150-450); RED BLOOD CELL COUNT(AUTO) 3.86 MIL/uL (4.5-6.0); RED CELL DISTRIBUTION WIDTH 13.9 % (11.5-15.0); WHITE BLOOD COUNT (AUTO) 8.5 K/uL (4.3-11.0)
[2024-07-25] MEDS: IV NS 0.9% 1,000 ML BAG IV ONE (18:57)
[2024-07-25] MEDS: KETOROLAC TROMETHAMINE INJ 30 MG/ML VIAL IV ONE (18:59)
[2024-07-25] MEDS: CEFTRIAXONE 1GM BAG (ER ONLY) 1 GM/50 ML PIGGYBACK IV ONE (18:59)
[2024-07-25 19:06] LABS: CALCIUM, SERUM 8.8 mg/dL (8.5-10.1); CARBON DIOXIDE 27 mmol/L (21-32); CHLORIDE 95 mmol/L (98-107); GLUCOSE 106 mg/dL (74-106); POTASSIUM 3.6 mmol/L (3.5-5.1); SODIUM SERUM 131 mmol/L (136-145); UREA NITROGEN, BLOOD 26 mg/dL (7-18)
[2024-07-25 19:08] LABS: APPEARANCE,URINE CLEAR (CLEAR); BILIRUBIN,URINE NEGATIVE (NEGATIVE); BLOOD, URINE TRACE-INTA Ery/uL (NEGATIVE); COLOR,URINE YELLOW (YELLOW); KETONES,URINE NEGATIVE (NEGATIVE); LEUKOCYTE ESTERASE ,URINE TRACE (NEGATIVE); NITRITE, URINE NEGATIVE (NEGATIVE); PROTEIN,URINE NEGATIVE (NEGATIVE); UGLUCOSE NEGATIVE (NEGATIVE)
[2024-07-25 19:28] LABS: ADD URINE CULTURE NO; BACTERIA,URINE RARE /HPF (None Seen); SQUAMOUS EPITHELIAL CELL,UR 0-2 /HPF (None Seen)
[2024-07-25] MEDS ORDERED: CEPH-570 PO (19:38)
[2024-07-25] MEDS ORDERED: CLOT15CR27 TP (19:38)
[2024-07-25 20:13] VITALS: BP 166/84; TEMP 97.7; O2SAT 98
== END 2024-07-25 20:13 | disposition home or self-care (01) ==
LOC: ER 17:55
DX: N47.1 Phimosis (principal); N34.2 Other urethritis; Z86.73 Personal history of transient ischemic attack (TIA), and cerebral infarction without residual deficits; I10 Essential (primary) hypertension
CPT/HCPCS: 99284; 96365; 96375; 85025; 80048; 87086; 81001; 36415; J1885; J7030; J0696

== ENCOUNTER 2025-01-06 14:49 | Emergency (ER) | payer MEDICARE, OTHER ==
[~2025-01-06] VITALS: Ht 170.2 cm; Wt 72.6 kg
[~2025-01-06 14:49] MED LIST changes: +CEPH-570 PO; +CLOT15CR27 TP
[2025-01-06 16:07] VITALS: BP 195/80; TEMP 98; O2SAT 98
== END 2025-01-06 16:09 | disposition home or self-care (01) ==
LOC: ER 14:53
DX: I10 Essential (primary) hypertension (principal); Z86.73 Personal history of transient ischemic attack (TIA), and cerebral infarction without residual deficits

== ENCOUNTER 2025-03-26 22:27 | Inpatient (IN) | payer MEDICARE, OTHER ==
[~2025-03-26] VITALS: Ht 165.1 cm; Wt 78.0 kg
[2025-03-26] MEDS ORDERED: FUROSEMIDE 20 MG/2 ML VIAL ONE (22:42)
[2025-03-26] MEDS ORDERED: NTG 50 MG/D5W250 ML BOTTL 250 ML IV ONE (22:42)
[2025-03-26] MEDS ORDERED: IPRATROPIUM NEB FS 0.5 MG/2.5 ML AMPUL.NEB ONE (22:47)
[2025-03-26] MEDS ORDERED: ALBUTEROL FS 2.5 MG/3 ML VIAL.NEB ONE (22:47)
[2025-03-26 22:51] LABS: PLATELET COUNT (AUTO) 306 K/uL (150-450); RED BLOOD CELL COUNT(AUTO) 3.66 MIL/uL (4.5-6.0); RED CELL DISTRIBUTION WIDTH 15.4 % (11.5-15.0); WHITE BLOOD COUNT (AUTO) 7.9 K/uL (4.3-11.0)
[2025-03-26] MEDS: FUROSEMIDE 20 MG/2 ML VIAL IV ONE (22:51)
[2025-03-26] MEDS: NTG 50 MG/D5W250 ML BOTTL 250 ML IV PRN (22:52)
[2025-03-26] MEDS: IPRATROPIUM NEB FS 0.5 MG/2.5 ML AMPUL.NEB NEB ONE (22:55)
[2025-03-26] MEDS: ALBUTEROL FS 2.5 MG/3 ML VIAL.NEB NEB ONE (22:55)
[2025-03-26 22:56] VITALS: O2SAT 100
[2025-03-26 23:02] LABS: CALCIUM, SERUM 8.6 mg/dL (8.5-10.1); CREATININE 1.7 mg/dL (0.6-1.3); SODIUM SERUM 134 mmol/L (136-145); UREA NITROGEN, BLOOD 19 mg/dL (7-18)
[2025-03-26 23:12] LABS: ASPARTATE AMINOTRANSFERASE 22 U/L (15-37); NT-PRO BNP 1159 pg/mL (0-125); TOTAL PROTEIN, SERUM 7.9 g/dL (6.4-8.2)
[2025-03-26 23:56] VITALS: O2SAT 100
[2025-03-27] VITALS (9 sets, daily range): BP systolic 134–175; BP diastolic 55–71; TEMP 97.5–98.2; O2SAT 97–100
[2025-03-27] MEDS ORDERED: CEFTRIAXONE 1GM BAG (ER ONLY) 50 ML IV ONE (00:30)
[2025-03-27] MEDS ORDERED: AZITHROMYCIN 500 MG VIAL ONE (00:31)
[2025-03-27] MEDS: CEFTRIAXONE 1GM BAG (ER ONLY) 50 ML IV ONE (00:37)
[2025-03-27] MEDS: AZITHROMYCIN 500 MG in IV D5W 250 ML IV ONE (01:07)
[2025-03-27] MEDS ORDERED: ONDANSETRON HCL/PF 4 MG/2 ML VIAL IVP PRN (01:30)
[2025-03-27] MEDS ORDERED: Z GUARD REMEDY 4 OZ OINT TP PRN (01:30)
[2025-03-27] MEDS ORDERED: MAGNESIUM HYDROXIDE 30 ML UDC PO PRN (01:30)
[2025-03-27] MEDS ORDERED: MAG HYDROX/AL HYDROX/SIMETH 30 ML UDC PO PRN (01:30)
[2025-03-27] MEDS ORDERED: ASPIRIN 81 MG TAB.CHEW ONE (01:47)
[2025-03-27] MEDS: ASPIRIN 81 MG TAB.CHEW PO ONE ×2 (01:49→03:07)
[2025-03-27] MEDS: hydrALAZINE HCL IV 20 MG VIAL IV ONE (05:10)
[2025-03-27] MEDS: ALBUTEROL FS 2.5 MG/3 ML VIAL.NEB NEB PRN (05:56)
[2025-03-27] MEDS: IPRATROPIUM NEB FS 0.5 MG/2.5 ML AMPUL.NEB NEB PRN (05:56)
[2025-03-27 07:58] LABS: PLATELET COUNT (AUTO) 286 K/uL (150-450); RED BLOOD CELL COUNT(AUTO) 3.54 MIL/uL (4.5-6.0); RED CELL DISTRIBUTION WIDTH 15.3 % (11.5-15.0); WHITE BLOOD COUNT (AUTO) 8.3 K/uL (4.3-11.0)
[2025-03-27] MEDS: FUROSEMIDE 20 MG/2 ML VIAL IV SCH (08:05)
[2025-03-27] MEDS: PANTOPRAZOLE 40 MG TABLET.DR PO SCH (08:05)
[2025-03-27] MEDS: HEPARIN SODIUM, PORCINE 5000 UNITS/1 ML VIAL SQ SCH (08:05)
[2025-03-27] MEDS: ACETAMINOPHEN 325 MG TABLET PO PRN (08:17)
[2025-03-27 08:56] LABS: CALCIUM, SERUM 9.1 mg/dL (8.5-10.1); CREATININE 1.8 mg/dL (0.6-1.3); PHOSPHORUS 4.1 mg/dL (2.5-4.9); SODIUM SERUM 134.0 mmol/L (136-145); UREA NITROGEN, BLOOD 21.0 mg/dL (7-18)
[2025-03-27] MEDS: POLYETHYLENE GLYCOL 3350 17 GM POWD.PACK PO STA (09:19)
[2025-03-27] MEDS ORDERED: ASPI-1420 PO (10:02)
[2025-03-27] MEDS ORDERED: NIFE-35 PO (10:02)
[2025-03-27] MEDS ORDERED: TAMS-12 PO (10:02)
[2025-03-27] MEDS ORDERED: ROSU40TA23 PO (10:02)
[2025-03-27] MEDS ORDERED: CLOP75TA15 PO (10:02)
[2025-03-27] MEDS ORDERED: LOSA50TA39 PO (10:02)
[2025-03-27] MEDS ORDERED: HYDR-4075 PO (10:02)
[2025-03-27] MEDS ORDERED: OMEP1CAP24 PO (10:02)
[2025-03-27] MEDS ORDERED: GEMTESA PO (10:02)
[2025-03-27] MEDS ORDERED: MULT-594 PO (10:02)
[2025-03-27] MEDS ORDERED: CARV3.122 PO (10:02)
[2025-03-27] MEDS ORDERED: ENOXAPARIN SODIUM 80 MG/0.8 ML DISP.SYRIN SQ SCH (11:00)
[2025-03-27 11:54] LABS: ABG BASE EXCESS -6.9 mmol/L (-2.0-3.0); ABG OXYGEN SATURATION 97.3 % (94.0-98.0); ABG PCO2 21.9 mmHg (35.0-48.0); ABG PH 7.463 (7.350-7.450); ABG PO2 97.3 mmHg (83.0-108.0); ABG TOTAL HEMOGLOBIN 10.2 G/dL (13.5-17.5); FLOW, BLOOD GAS 5.00 L/min (0.00-30.00); FRACTIONATED INSPIRED OXYGEN 40.0 %; SITE, ABG RIGHT RADIAL
[2025-03-27] MEDS: METOPROLOL TARTRATE 50 MG TABLET PO SCH (12:11)
[2025-03-27 12:41] LABS: APPEARANCE,URINE CLEAR (CLEAR); BLOOD, URINE NEGATIVE Ery/uL (NEGATIVE); LEUKOCYTE ESTERASE ,URINE NEGATIVE (NEGATIVE); NITRITE, URINE POSITIVE (NEGATIVE); UGLUCOSE NEGATIVE (NEGATIVE)
[2025-03-27 12:53] LABS: CREATININE, URINE 69.8 MG/DL (30.0-125.0); URINE SODIUM, RANDOM 153.0 mmol/l (40-220); URINE TOTAL PROTEIN 83.9 mg/dL (0-11.9)
[2025-03-27 12:57] LABS: ADD URINE CULTURE YES; SQUAMOUS EPITHELIAL CELL,UR 0-2 /HPF (None Seen)
[2025-03-27 13:35] LABS: EOSINOPHIL,URINE None Seen
[2025-03-27] MEDS: ENOXAPARIN SODIUM 80 MG/0.8 ML DISP.SYRIN SQ SCH (21:16)
[2025-03-28] VITALS: BP 142/47; TEMP 97.9; O2SAT 96
[2025-03-28] MEDS: CEFTRIAXONE 1 G in IV D5W 50 ML IV SCH (00:07)
[2025-03-28] MEDS: AZITHROMYCIN 500 MG in IV D5W 250 ML IV SCH (00:59)
[2025-03-28 04:00] VITALS: BP 144/56; TEMP 98.1; O2SAT 97
[2025-03-28 06:44] LABS: PLATELET COUNT (AUTO) 238 K/uL (150-450); RED BLOOD CELL COUNT(AUTO) 2.97 MIL/uL (4.5-6.0); RED CELL DISTRIBUTION WIDTH 15.2 % (11.5-15.0); WHITE BLOOD COUNT (AUTO) 7.2 K/uL (4.3-11.0)
[2025-03-28 08:00] VITALS: BP 157/64; TEMP 98.4; O2SAT 96
[2025-03-28] MEDS: ASPIRIN 81 MG TAB.CHEW PO SCH (08:52)
[2025-03-28 11:32] LABS: CALCIUM, SERUM 9.0 mg/dL (8.5-10.1); CREATININE 1.9 mg/dL (0.6-1.3); PHOSPHORUS 5.2 mg/dL (2.5-4.9); SODIUM SERUM 133.0 mmol/L (136-145); UREA NITROGEN, BLOOD 21.0 mg/dL (7-18)
[2025-03-28 12:00] VITALS: BP 146/55; TEMP 98.1; O2SAT 99
[2025-03-28 12:06] LABS: ASPARTATE AMINOTRANSFERASE 27.0 U/L (15-37); TOTAL PROTEIN, SERUM 6.6 g/dL (6.4-8.2)
[2025-03-28] MEDS: MULTIVIT W/MINERALS 1 TAB TABLET PO SCH (12:15)
[2025-03-28] MEDS: POTASSIUM CHLORIDE 20 MEQ TAB.PRT.SR PO ONE (13:29)
[2025-03-28 14:07] LABS: INR 1.05 (0.91-1.10)
[2025-03-28 14:41] LABS: HIV-1/2 ANTIBODY NON REACTIVE (NONREACTIVE)
[2025-03-28 16:00] VITALS: BP 118/52; TEMP 97.7; O2SAT 99
[2025-03-28 16:28] LABS: IRON, SERUM 22 ug/dl (50-175)
[2025-03-28 16:39] LABS: CREATINE KINASE, TOTAL 62.0 U/L (39-308); LDL 47.0 mg/dL (0-99)
[2025-03-28] MEDS: NIFEdipine XL (30MG) 30 MG TAB PO SCH (17:12)
[2025-03-28] MEDS: CARVEDILOL 3.125 MG TABLET PO SCH (17:13)
[2025-03-28 20:00] VITALS: BP 118/47; TEMP 97.5; O2SAT 99
[2025-03-28] MEDS: HEPARIN INFUSION/D5W 500 ML IV PRN (20:58)
[2025-03-28] MEDS ORDERED: HEPARIN SODIUM, PORCINE 5000 UNITS/1 ML VIAL IV ONE (21:00)
[2025-03-28] MEDS: ATORVASTATIN 40 MG TABLET PO SCH (22:03)
[2025-03-29] VITALS: BP 130/60; TEMP 97.7; O2SAT 97
[2025-03-29 04:00] VITALS: BP 124/57; TEMP 97.7; O2SAT 95
[2025-03-29 07:01] LABS: PLATELET COUNT (AUTO) 241 K/uL (150-450); RED BLOOD CELL COUNT(AUTO) 3.16 MIL/uL (4.5-6.0); RED CELL DISTRIBUTION WIDTH 15.0 % (11.5-15.0); WHITE BLOOD COUNT (AUTO) 7.0 K/uL (4.3-11.0)
[2025-03-29 07:08] LABS: PTH, INTACT 35 pg/mL (15-65)
[2025-03-29 07:19] LABS: CALCIUM, SERUM 8.2 mg/dL (8.5-10.1); CREATININE 1.8 mg/dL (0.6-1.3); PHOSPHORUS 5.5 mg/dL (2.5-4.9); SODIUM SERUM 127.0 mmol/L (136-145); UREA NITROGEN, BLOOD 22.0 mg/dL (7-18)
[2025-03-29 08:00] VITALS: BP 112/51; TEMP 97.7; O2SAT 97
[2025-03-29] MEDS ORDERED: CLOPIDOGREL BISULFATE 75 MG TABLET PO SCH (09:00)
[2025-03-29] MEDS ORDERED: Medication Not On Formulary EA ([Gemtesa] 75 MG) PO SCH (09:00)
[2025-03-29] MEDS: POTASSIUM CHLORIDE 20 MEQ TAB.PRT.SR PO SCH (09:02)
[2025-03-29] MEDS: TAMSULOSIN 0.4 MG CAP.SR.24H PO SCH (09:02)
[2025-03-29] MEDS: Magnesium 1GM/D5W 100ML PREMIX 100 ML IV SCH (09:02)
[2025-03-29 12:00] VITALS: BP 112/51; TEMP 97.7; O2SAT 97
[2025-03-29] MEDS: SOD FERRIC GLUC 125 MG in IV NS 0.9% 100 ML IV SCH (14:00)
[2025-03-29 15:06] LABS: CALCIUM, SERUM 8.3 mg/dL (8.5-10.1); CREATININE 1.9 mg/dL (0.6-1.3); SODIUM SERUM 125.0 mmol/L (136-145); UREA NITROGEN, BLOOD 23.0 mg/dL (7-18)
[2025-03-29 16:00] VITALS: BP 111/48; TEMP 97.5; O2SAT 98
[2025-03-29 20:00] VITALS: BP 122/56; TEMP 97.5; O2SAT 98
[2025-03-29] MEDS: ALPRAZOLAM 0.25 MG TABLET PO ONE (23:49)
[2025-03-30] VITALS: BP 133/59; TEMP 97.5; O2SAT 96
[2025-03-30 04:00] VITALS: BP 116/52; TEMP 97; O2SAT 98
[2025-03-30 04:27] LABS: PLATELET COUNT (AUTO) 266 K/uL (150-450); RED BLOOD CELL COUNT(AUTO) 3.47 MIL/uL (4.5-6.0); RED CELL DISTRIBUTION WIDTH 14.9 % (11.5-15.0); WHITE BLOOD COUNT (AUTO) 6.5 K/uL (4.3-11.0)
[2025-03-30 05:06] LABS: ASPARTATE AMINOTRANSFERASE 17.0 U/L (15-37); CALCIUM, SERUM 8.3 mg/dL (8.5-10.1); CREATININE 1.8 mg/dL (0.6-1.3); PHOSPHORUS 4.8 mg/dL (2.5-4.9); SODIUM SERUM 128.0 mmol/L (136-145); TOTAL PROTEIN, SERUM 7.1 g/dL (6.4-8.2); UREA NITROGEN, BLOOD 23.0 mg/dL (7-18)
[2025-03-30 06:07] LABS: *SPE A/G RATIO 1.0 (0.7-1.7); *SPE ALBUMIN 2.9 g/dL (2.9-4.4); *SPE ALPHA-1-GLOBULIN 0.3 g/dL (0.0-0.4); *SPE ALPHA-2-GLOBULIN 0.8 g/dL (0.4-1.0); *SPE BETA GLOBULIN 0.8 g/dL (0.7-1.3); *SPE GLOBULIN, TOTAL 2.8 g/dL (2.2-3.9); *SPE M-SPIKE Not Observed g/dL (Not Observed); *SPE PROTEIN TOTAL 5.7 g/dL (6.0-8.5); *SPEGAMMA GLOBULIN 0.9 g/dL (0.4-1.8)
[2025-03-30 08:00] VITALS: BP 139/62; TEMP 98.2; O2SAT 99
[2025-03-30] MEDS: APIXABAN 5 MG TABLET PO SCH (09:19)
[2025-03-30 12:00] VITALS: BP 121/51; TEMP 97.5; O2SAT 97
[2025-03-30 16:00] VITALS: BP 113/53; TEMP 97.7; O2SAT 100
[2025-03-30 20:00] VITALS: BP 112/52; TEMP 98.1; O2SAT 98
[2025-03-30] MEDS: ALPRAZOLAM 0.25 MG TABLET PO SCH (21:17)
[2025-03-31] VITALS: BP 135/57; TEMP 97.5; O2SAT 99
[2025-03-31] MEDS ORDERED: AZITHROMYCIN 250 MG TABLET PO SCH (01:00)
[2025-03-31 04:00] VITALS: BP 124/52; TEMP 97.3; O2SAT 99
[2025-03-31 07:37] LABS: PLATELET COUNT (AUTO) 262 K/uL (150-450); RED BLOOD CELL COUNT(AUTO) 3.22 MIL/uL (4.5-6.0); RED CELL DISTRIBUTION WIDTH 14.5 % (11.5-15.0); WHITE BLOOD COUNT (AUTO) 4.6 K/uL (4.3-11.0)
[2025-03-31 08:00] VITALS: BP 125/56; TEMP 97.9; O2SAT 99
[2025-03-31 08:12] LABS: ASPARTATE AMINOTRANSFERASE 18.0 U/L (15-37); CALCIUM, SERUM 8.1 mg/dL (8.5-10.1); CREATININE 1.8 mg/dL (0.6-1.3); PHOSPHORUS 4.5 mg/dL (2.5-4.9); SODIUM SERUM 127.0 mmol/L (136-145); TOTAL PROTEIN, SERUM 6.6 g/dL (6.4-8.2); UREA NITROGEN, BLOOD 23.0 mg/dL (7-18)
[2025-03-31] MEDS: SODIUM CHLORIDE 1000 MG TABLET PO SCH (10:33)
[2025-03-31 12:00] VITALS: BP_SYST 122; BP_SYST 129; BP_DIAS 52; BP_DIAS 55; TEMP 97.3; TEMP 97.7; O2SAT 97; O2SAT 99
[2025-03-31] MEDS ORDERED: ASPI-1420 PO (14:34)
[2025-03-31] MEDS ORDERED: SODI100037 PO (14:34)
[2025-03-31] MEDS ORDERED: APIX5TAB PO (14:35)
[2025-03-31] MEDS ORDERED: OXYMETAZOLINE HCL NASAL SPRAY 30 ML BOTTLE NS PRN (15:30)
[2025-03-31 16:00] VITALS: BP 113/49; TEMP 97.3; O2SAT 99
[2025-03-31 20:00] VITALS: BP 109/57; TEMP 98.5; O2SAT 100
[2025-04-01 04:00] VITALS: BP 104/58; TEMP 98.1; O2SAT 99
[2025-04-01 08:00] VITALS: BP 131/57; TEMP 97.9; O2SAT 99
[2025-04-01 08:05] LABS: PLATELET COUNT (AUTO) 239 K/uL (150-450); RED BLOOD CELL COUNT(AUTO) 3.19 MIL/uL (4.5-6.0); RED CELL DISTRIBUTION WIDTH 14.3 % (11.5-15.0); WHITE BLOOD COUNT (AUTO) 5.2 K/uL (4.3-11.0)
[2025-04-01 08:26] LABS: ASPARTATE AMINOTRANSFERASE 18.0 U/L (15-37); CALCIUM, SERUM 8.1 mg/dL (8.5-10.1); CREATININE 1.9 mg/dL (0.6-1.3); PHOSPHORUS 3.9 mg/dL (2.5-4.9); SODIUM SERUM 125.0 mmol/L (136-145); TOTAL PROTEIN, SERUM 6.6 g/dL (6.4-8.2); UREA NITROGEN, BLOOD 28.0 mg/dL (7-18)
[2025-04-01 18:00] VITALS: BP 114/51; TEMP 97.9; O2SAT 98
[2025-04-01 20:00] VITALS: BP 105/58; TEMP 97.7; O2SAT 98
[2025-04-02] VITALS (11 sets, daily range): BP systolic 108–150; BP diastolic 50–75; TEMP 97.3–98.4; O2SAT 98
[2025-04-02 07:20] LABS: PLATELET COUNT (AUTO) 217 K/uL (150-450); RED BLOOD CELL COUNT(AUTO) 2.86 MIL/uL (4.5-6.0); RED CELL DISTRIBUTION WIDTH 14.6 % (11.5-15.0); WHITE BLOOD COUNT (AUTO) 5.6 K/uL (4.3-11.0)
[2025-04-02 07:55] LABS: CALCIUM, SERUM 8.0 mg/dL (8.5-10.1); CREATININE 1.8 mg/dL (0.6-1.3); PHOSPHORUS 3.6 mg/dL (2.5-4.9); SODIUM SERUM 124.0 mmol/L (136-145); UREA NITROGEN, BLOOD 32.0 mg/dL (7-18)
[2025-04-02] MEDS: FUROSEMIDE 40 MG TABLET PO STA (08:39)
[2025-04-02] MEDS: SODIUM CHLORIDE 1000 MG TABLET PO SCH (12:15)
[2025-04-02 15:57] LABS: CALCIUM, SERUM 8.0 mg/dL (8.5-10.1); CREATININE 1.9 mg/dL (0.6-1.3); SODIUM SERUM 128.0 mmol/L (136-145); UREA NITROGEN, BLOOD 35.0 mg/dL (7-18)
[2025-04-03 00:05] VITALS: BP 144/73; TEMP 98
[2025-04-03 00:54] VITALS: BP 143/58; TEMP 98.1
[2025-04-03 07:43] LABS: PLATELET COUNT (AUTO) 216 K/uL (150-450); RED BLOOD CELL COUNT(AUTO) 3.47 MIL/uL (4.5-6.0); RED CELL DISTRIBUTION WIDTH 14.6 % (11.5-15.0); WHITE BLOOD COUNT (AUTO) 6.9 K/uL (4.3-11.0)
[2025-04-03 08:00] VITALS: BP 172/68; TEMP 97.5; O2SAT 97
[2025-04-03 08:13] LABS: CALCIUM, SERUM 8.4 mg/dL (8.5-10.1); CREATININE 1.7 mg/dL (0.6-1.3); PHOSPHORUS 3.6 mg/dL (2.5-4.9); SODIUM SERUM 131.0 mmol/L (136-145); UREA NITROGEN, BLOOD 31.0 mg/dL (7-18)
[2025-04-03] MEDS: FUROSEMIDE 20 MG TABLET PO SCH (09:40)
[2025-04-03] MEDS: hydrALAZINE HCL IV 20 MG VIAL IV PRN (09:53)
[2025-04-03] MEDS ORDERED: LIDOCAINE 1% INJ 50 ML MDV IJ ONE (10:39)
[2025-04-03] MEDS ORDERED: IOHEXOL 50 ML IV ONE (10:39)
[2025-04-03] MEDS ORDERED: FENTANYL PF 100MCG/2ML AMPUL ONE (11:06)
[2025-04-03 16:00] VITALS: BP 112/50; TEMP 97.9; O2SAT 96
[2025-04-03 20:00] VITALS: BP 128/52; TEMP 97.3; O2SAT 98
[2025-04-03] MEDS: ANCEF 1 GM/50 ML D5W IV SCH (20:31)
[2025-04-04 04:00] VITALS: BP 139/52; TEMP 97.9; O2SAT 97
[2025-04-04 07:17] LABS: CALCIUM, SERUM 8.6 mg/dL (8.5-10.1); CREATININE 1.5 mg/dL (0.6-1.3); PHOSPHORUS 3.4 mg/dL (2.5-4.9); SODIUM SERUM 134.0 mmol/L (136-145); UREA NITROGEN, BLOOD 30.0 mg/dL (7-18)
[2025-04-04 07:27] LABS: PLATELET COUNT (AUTO) 233 K/uL (150-450); RED BLOOD CELL COUNT(AUTO) 3.49 MIL/uL (4.5-6.0); RED CELL DISTRIBUTION WIDTH 15.2 % (11.5-15.0); WHITE BLOOD COUNT (AUTO) 9.0 K/uL (4.3-11.0)
[2025-04-04 08:00] VITALS: BP 136/54; TEMP 98.2; O2SAT 99
[2025-04-04 16:00] VITALS: BP 115/46; TEMP 97.5; O2SAT 98
[2025-04-04] MEDS: TAMSULOSIN 0.4 MG CAP.SR.24H PO SCH (17:48)
[2025-04-04] MEDS ORDERED: TAMS-12 PO (18:32)
[2025-04-04 20:00] VITALS: BP 121/49; TEMP 97.5; O2SAT 95
[2025-04-05 04:00] VITALS: BP 120/53; TEMP 97.9; O2SAT 98
[2025-04-05 06:56] LABS: CALCIUM, SERUM 8.1 mg/dL (8.5-10.1); CREATININE 1.4 mg/dL (0.6-1.3); SODIUM SERUM 137.0 mmol/L (136-145); UREA NITROGEN, BLOOD 30.0 mg/dL (7-18)
[2025-04-05 08:00] VITALS: BP 129/64; TEMP 97.7; O2SAT 97
[2025-04-05 09:00] VITALS: BP 122/69; TEMP 97.5; O2SAT 96
[2025-04-05 12:39] VITALS: BP 122/72
== END 2025-04-05 15:22 | disposition home health service (06) | DRG 280 ==
LOC: ER 22:29 → ICUOV 03-27 01:34 → TELE-TD 03-27 02:31 → TELE1 03-27 15:54 → MEDSG1 03-31 09:03
PROVIDERS: ADMIT Nurse Practitioner Family; ATTEND Internal Medicine
PROC: 5A09357 Assistance with Respiratory Ventilation, Less than 24 Consecutive Hours, Continuous Positive Airway Pressure (ICD-10-PCS; principal; 2025-03-27)
PROC: 30233N1 Transfusion of Nonautologous Red Blood Cells into Peripheral Vein, Percutaneous Approach (ICD-10-PCS; 2025-04-02)
PROC: 06H03DZ Insertion of Intraluminal Device into Inferior Vena Cava, Percutaneous Approach (ICD-10-PCS; 2025-04-03)
PROC: B549ZZZ Ultrasonography of Inferior Vena Cava (ICD-10-PCS; 2025-04-03)
DX: I13.0 Hypertensive heart and chronic kidney disease with heart failure and stage 1 through stage 4 chronic kidney disease, or unspecified chronic kidney disease (principal); I50.33 Acute on chronic diastolic (congestive) heart failure; I21.A1 Myocardial infarction type 2; J96.01 Acute respiratory failure with hypoxia; N17.0 Acute kidney failure with tubular necrosis; N18.4 Chronic kidney disease, stage 4 (severe); I69.354 Hemiplegia and hemiparesis following cerebral infarction affecting left non-dominant side; E87.1 Hypo-osmolality and hyponatremia; I82.411 Acute embolism and thrombosis of right femoral vein; D68.32 Hemorrhagic disorder due to extrinsic circulating anticoagulants; N40.1 Benign prostatic hyperplasia with lower urinary tract symptoms; R33.8 Other retention of urine; D64.9 Anemia, unspecified; E78.5 Hyperlipidemia, unspecified; E87.6 Hypokalemia; I16.0 Hypertensive urgency; K59.00 Constipation, unspecified; E83.9 Disorder of mineral metabolism, unspecified; M89.8X9 Other specified disorders of bone, unspecified site; D50.9 Iron deficiency anemia, unspecified; I27.23 Pulmonary hypertension due to lung diseases and hypoxia; R31.9 Hematuria, unspecified; T45.525A Adverse effect of antithrombotic drugs, initial encounter; Y92.230 Patient room in hospital as the place of occurrence of the external cause
CPT/HCPCS: 36415; 36600; 71045-TC; 74018; 76700-TC; 78582; 80048-TC; 80053-TC; 80061-TC; 80076-TC; 81001; 82550-TC; 82570-TC; 82803-TC; 83540-TC; 83735-TC; 83880; 83935-TC; 83970; 84100-TC; 84155; 84165; 84300-TC; 84443-TC; 84484-TC; 85025-TC; 85027-TC; 85610-TC; 85730-TC; 86803; 86850-TC; 87040-TC; 87070-TC; 87086-TC; 87205-TC; 87806; 93307-TC; 93970-TC; 94799-TC; 97116-TC; 97530-TC; A4223; A9540; A9567; C1769; C1880; G0378; J0360; J0456; J0690; J0696; J1644; J1650; J1938; J2704; J2916; J3010; J3475; J3490; J7030; J7050; J7060; P9016; Q9967